=== PATIENT | female | born 1995 | race Caucasian/White ===

== ENCOUNTER 2021-08-14 17:52 | Observation (INO) | payer OTHER, SELFPAY ==
--- NOTE | 2021-08-14 17:52 | OBADM ---
This patient, Wolf Cerda, admitted to the OB room OB Post 111 for observation. pt states she has suprapubic cramping and right side back pain. has some mousy vaginal discharge. denies feeling of leaking fluid. Patient/family oriented to hospital policies and general routines including ID bracelet, bed and alarms, visiting hours, pain management, procedures, bathroom and other care routines, personal items, smoking policy, room service/diet, and visiting hours. Patient/Family are encouraged to report perceived risks to care and to ask questions if they do not understand what they are told or what they should do.
[2021-08-14 18:26] VITALS: TEMP 36.9
[2021-08-14 18:29] VITALS: BP 109/60; PULSE 71
[2021-08-14 18:30] VITALS: BMI 28.6
[2021-08-14 18:42] LABS: Add Urine Microscopic? NO; Appearance Urine Clear (Clear); Bilirubin Urine Negative (Negative); Blood Urine Negative (Negative); Color Urine Straw (Yellow); Glucose Urine UA Negative (Negative); Ketones Urine Negative (Negative); Leukocyte Esterase Ur Negative LEU/UL (NEGATIVE); Nitrate Urine Negative (Negative); Protein Urine Negative (Negative); Specific Grav Ur 1.011 (1.001-1.035); Urobilinogen Urine Negative mg/dL (<2.0)
[2021-08-14] MEDS: ACETAMINOPHEN 500 MG TABLET 1000 MG PO (19:30)
--- NOTE | 2021-08-21 16:36 | PM.OBTRLD ---
OB - Triage/Final Diagnosis Visit Information Comments/Additional reasons for admission: I have assessed the risk for this patient, Wolf Cerda, and determined that she would benefit from observation care. Evaluation Laboratory results: Laboratory Tests 08/14/21 18:33 Urine Color Straw Urine Appearance Clear Urine pH 7.0 Ur Specific [place] 1.011 Urine Protein Negative Urine Glucose (UA) Negative Urine Ketones Negative Ur Blood (Man) Negative Urine Nitrate Negative Urine Bilirubin Negative Urine Urobilinogen Negative Ur Leukocyte Esterase Negative Final Diagnosis (1) Back pain affecting : Code(s): O99.891 - Other specified diseases and conditions complicating ; M54.9 - Dorsalgia, unspecified Status: Acute (2) Abdominal pain affecting : Code(s): O26.899 - Other specified related conditions, unspecified trimester; R10.9 - Unspecified abdominal pain Status: Acute
== END 2021-08-14 19:45 | disposition home or self-care (01) ==
PROVIDERS: Admitting Provider Obstetrics & Gynecology; PCP Obstetrics & Gynecology; Visit Provider Obstetrics & Gynecology
DX: O99.893 Other specified diseases and conditions complicating puerperium (principal); M54.9 Dorsalgia, unspecified; R10.9 Unspecified abdominal pain; Z3A.29 29 weeks gestation of pregnancy
CPT/HCPCS: 81003; 87086; 87088; A9270; G0378; G0379

== ENCOUNTER 2021-10-15 18:14 | Observation (INO) | payer OTHER, SELFPAY ==
--- NOTE | 2021-10-15 18:14 | OBADM ---
This patient, Wolf Cerda, admitted to the OB room OB Post 116 for observation. Patient/family oriented to hospital policies and general routines including ID bracelet, bed and alarms, visiting hours, pain management, procedures, bathroom and other care routines, personal items, smoking policy, room service/diet, and visiting hours. Patient/Family are encouraged to report perceived risks to care and to ask questions if they do not understand what they are told or what they should do.
[2021-10-15 18:48] VITALS: BP 97/64; PULSE 84
[2021-10-15 18:50] VITALS: TEMP 36.5; BMI 30.9
[2021-10-15] MEDS: ACETAMINOPHEN 500 MG TABLET 1000 MG PO (19:13)
[2021-10-15 19:40] LABS: Add Urine Microscopic? NO; Appearance Urine Clear (Clear); Bilirubin Urine Negative (Negative); Blood Urine Negative (Negative); Color Urine Yellow (Yellow); Glucose Urine UA Negative (Negative); Ketones Urine Negative (Negative); Leukocyte Esterase Ur Negative LEU/UL (NEGATIVE); Nitrate Urine Negative (Negative); Protein Urine Negative (Negative); Urobilinogen Urine Negative mg/dL (<2.0)
[2021-10-15] MEDS: CYCLOBENZAPRINE HCL 10 MG TABLET PO (20:30)
--- NOTE | 2021-10-17 07:21 | P.PNOB_ITS ---
OB - Triage/Final Diagnosis Visit Information Date of evaluation: 10/15/21 Reason for evaluation: threatened labor Comments/Additional reasons for admission: I have assessed the risk for this patient, Wolf Knapp Cerda, and determined that she would benefit from obs ervation care. Evaluation Laboratory results: Laboratory Tests 10/15/21 19:04 Urine Color Yellow Urine Appearance Clear Urine pH 6.0 Ur Specific [place] 1.010 Urine Protein Negative Urine Glucose (UA) Negative Urine Ketones Negative Ur Blood (Man) Negative Urine Nitrate Negative Urine Bilirubin Negative Urine Urobilinogen Negative Ur Leukocyte Esterase Negative
== END 2021-10-15 21:30 | disposition home or self-care (01) ==
PROVIDERS: Advanced Practice Midwife; Admitting Provider Obstetrics & Gynecology; Visit Provider Obstetrics & Gynecology
DX: O47.1 False labor at or after 37 completed weeks of gestation (principal); Z3A.38 38 weeks gestation of pregnancy
CPT/HCPCS: 81003; 87086; 87088; A9270; G0378; G0379

== ENCOUNTER 2021-10-27 09:42 | Inpatient (IN) | payer OTHER, SELFPAY ==
[2021-10-27] VITALS (66 sets, daily range): BP systolic 63–151; BP diastolic 43–124; PULSE 61–183; RESP 18; TEMP 36.2–37.2; O2SAT 94–100; BMI 31.1
--- NOTE | 2021-10-27 09:42 | LDADM ---
This patient, Wolf Cerda, was admitted to Labor/Delivery/Recovery 106 on 10/27/21 at 09:42. Plans for labor, pain management and were discussed with patient. Patient/family oriented to hospital policies and general routines including ID bracelet, bed and alarms, visiting hours, pain management, procedures, bathroom and other care routines, personal items, smoking policy, room service/diet and guest tray routines, infant security routines, and visiting hours. Patient/Family are encouraged to report perceived risks to care and to ask questions if they do not understand what they are told or what they should do. See OBIX for further documentation.
--- OUTSIDE RECORDS SUMMARY | 2021-10-27 09:58 | XMS_ITS | Encounter Summary ---
:1995 Author Reason for Visit OB visit OB [id number] EDC 10/27/2021 LMP 01/20/2021 Assessment and Plan Assessment Note Patient is _39__weeks . Dis cussed plan. 1. Routine care Discussion Note: None recorded.Patient educational handouts: No information available. Plan of Care Reminders Provider Appointments Induction Danica Kolb, 10/29/2021 CNM 5:00PM Lab None ? ? recorded. Referral None ? ? recorded. Procedures None ? ? recorded. Surgeries None ? ? recorded. Imaging None ? ? recorded. Medications Name Start Date ? ? Diclegis ? fluticasone propionate 50 mcg/actuation nasal spray,barillas spension ? ondansetron HCl 4 mg tablet ? Take 1 tablet every 4-6 hours by oral route as needed . pantoprazole 40 mg tablet,delayed release ? TAKE 1 TABLET BY MOUTH EVERY DAY sertraline 100 mg tablet ? Take 1 tablet every day by oral route. Vitamin B6 ? Medications Administered None recorded. Vitals Height Weight BMI Blood Pressure 5 ft 5 in 186 lbs 31 kg/m2 103/68 mm[Hg] Results Lab Results None recorded. Allergies Code
--- OUTSIDE RECORDS SUMMARY | 2021-10-27 09:58 | XMS_ITS | Encounter Summary ---
:1995 Author Reason for Visit OB visit Assessment and Plan 1. Routine care 2. Anxiety in Discussion Note: None recorded.Patient educational handouts: No [...] BMI Blood Pressure 5 ft 5 in 177 lbs 29.5 kg/m2 100/70 mm[Hg] Results Lab Results None recorded. Allergies Code Code System Name Reaction Severity Onset NKDA ?
--- OUTSIDE RECORDS SUMMARY | 2021-10-27 09:58 | XMS_ITS | Encounter Summary ---
:1995 Author Reason for Visit None recorded. Assessment and Plan 1. Pre-existing maternal disease complicating ? US, obstetric, follow-up Discussion Note: None recorded.Patient educational handouts: No information available. Plan of Care Reminders Provider Appointments Induction Danica Kolb, 10/29/2021 CNM 5:00PM Lab None ? ? recorded. Referral None ? ? recorded. Procedures None ? ? recorded. Surgeries None ? ? recorded. Imaging [facility], Follow-up 08/13/2021 Medications Name Start Date ? ? Diclegis [...] B6 ? Medications Administered None recorded. Vitals None recorded. Results Lab Results None recorded. Allergies Code Code System Name Reaction Severity Onset NKDA ? ? ? Pro
--- OUTSIDE RECORDS SUMMARY | 2021-10-27 09:58 | XMS_ITS ---
:1995 Author Care Team Providers Name Role Phone MauroAzizase Primary Care Provider Unavailable Allergies Code Code System Name Reaction Severity Status Onset NKDA ? Medications Name Status Start Date Stop Date ? ? amoxicillin 500 mg capsule Completed ? 06/20 TAKE ONE CAPSULE BY MOUTH TWICE DAILY WITH FOOD Diclegis Active ? Not available ergocalciferol (vitamin D2) 1,250 mcg (50,000 unit) capsule Comp leted ? 03/23/2021 TAKE 1 CAPSULE BY MOUTH EVERY WEEK fluconazole 150 mg tablet Completed ? 2021 fluticasone propionate 50 mcg/actuation Active ? Not available nasal spray,suspension M-Yokasta Plus 27 mg iron-1 mg tablet Completed ? 03/23/2021 nitrofurantoin Completed ? 10/17/2021 monohydrate/macrocrystals 100 mg capsule norethindrone (contraceptive) 0.35 mg Completed ? 03/23/2021 tablet ondansetron 4 mg disintegrating tablet Completed ? 03/23/2021 ondansetron HCl 4 mg tablet Active ? Not available pantoprazole 40 mg tablet,delayed Active ? Not available release Plan B One-Step 1.5 mg tablet Completed ? sertraline 100 mg tablet Active ? Not herman ilable sertraline 50 mg tablet Completed ? 09/25/19 22 Unisom (diphenhydramine) Completed ? 022 Vitamin B6 Active ? Not available Zofran Completed ? 04/17/2021 Zofran (base) Completed ? 10/17/2021 Problems
--- OUTSIDE RECORDS SUMMARY | 2021-10-27 09:58 | XMS_ITS | Encounter Summary ---
:1995 Author Reason for Visit OB visit OB [id number] EDC 10/27/2021 LMP 01/20/2021 Assessment and Plan Assessment Note Patient is 36___weeks . Dis cussed plan. 1. Routine care [...] BMI Blood Pressure 5 ft 5 in 181 lbs 30.1 kg/m2 102/70 mm[Hg] Results Lab Results None recorded. Allergies Code
--- OUTSIDE RECORDS SUMMARY | 2021-10-27 09:58 | XMS_ITS | Encounter Summary ---
:1995 Author Reason for Visit None recorded. Assessment and Plan 1. Disease of the respiratory sy stem complicating , childbirth and/or the puerperium ? US, obstetric, follow-up Discussion Note: None recorded.Patient educational handouts: No information available. Plan of Care Reminders Provider Appointments Induction Danica Kolb, 10/29/2021 CNM 5:00PM Lab None ? ? recorded. Referral None ? ? recorded. Procedures None ? ? recorded. Surgeries None ? ? recorded. Imaging , [place] [facility], Follow-up 09/12/2021 Medications Name Start Date ? ? Diclegis [...]
--- OUTSIDE RECORDS SUMMARY | 2021-10-27 09:58 | XMS_ITS | Encounter Summary ---
:1995 Author Reason for Visit OB visit OB [id number] EDC 10/27/2021 LMP 01/20/2021 Assessment and Plan Assessment Note Patient is _38__weeks . Dis cussed plan. 1. Routine care [...] BMI Blood Pressure 5 ft 5 in 187.99 lbs 31.3 kg/m2 108/74 mm[Hg] Results Lab Results None recorded. Allergies Code
--- OUTSIDE RECORDS SUMMARY | 2021-10-27 09:58 | XMS_ITS | Encounter Summary ---
:1995 Author Reason for Visit OB visit Assessment and Plan 1. Routine care 2. Mixed anxiety and depressive disorder ? Zoloft 100 mg tablet Discussion Note: None recorded.Patient educational handouts: No [...] BMI Blood Pressure 5 ft 5 in 175 lbs 29.1 kg/m2 100/66 mm[Hg] Results Lab Results None recorded. Allergies Code Code System Name Reaction Severity Onset
--- OUTSIDE RECORDS SUMMARY | 2021-10-27 09:58 | XMS_ITS | Encounter Summary ---
:1995 Author Reason for Visit OB visit OB [id number] EDC 10/27/2021 LMP 01/20/2021 keiry israel is wanting STD testing Assessment and Plan Assessment Note Patient is _31__weeks . Dis cussed plan. 1. Routine care [...] BMI Blood Pressure 5 ft 5 in 173 lbs 28.8 kg/m2 113/73 mm[Hg] Results Lab Results None recorded. Allergies
--- OUTSIDE RECORDS SUMMARY | 2021-10-27 09:58 | XMS_ITS | Encounter Summary ---
:1995 Author Reason for Visit None recorded. Assessment and Plan 1. COVID-19 ? US, obstetric, follow-up Discussion Note: None recorded.Patient educational handouts: No information available. Plan of Care Reminders Provider Appointments Induction Danica Kolb, 10/29/2021 CNM 5:00PM Lab None ? ? recorded. Referral None ? ? recorded. Procedures None ? ? recorded. Surgeries None ? ? recorded. Imaging , [place] [facility], Follow-up 10/03/2021 Medications Name Start Date ? ? Diclegis [...] Reaction Severity Onset NKDA ? ? ? Problems Name St
--- OUTSIDE RECORDS SUMMARY | 2021-10-27 09:58 | XMS_ITS | Encounter Summary ---
:1995 Author Reason for Visit OB visit OB [id number] EDC 10/27/2021 LMP 01/20/2021 Assessment and Plan Assessment Note Patient is 37___weeks . Dis cussed plan. Discussion Note: None recorded.Patient educational handouts: No information available. Plan of Care Reminders Provider Appointments Induction Danica E Kennedi, 10/29/2021 CNM 5:00PM Lab None ? ? [...] BMI Blood Pressure 5 ft 5 in 187 lbs 31.1 kg/m2 104/70 mm[Hg] Results Lab Results None recorded. Allergies Code Code System Name Reaction Severity Onset
--- OUTSIDE RECORDS SUMMARY | 2021-10-27 09:58 | XMS_ITS | Encounter Summary ---
:1995 Author Reason for Visit OB visit Assessment and Plan 1. Routine care 2. Sterilization requested Discussion Note: None recorded.Patient educational handouts: No [...] BMI Blood Pressure 5 ft 5 in 169 lbs 28.1 kg/m2 107/73 mm[Hg] Results Lab Results None recorded. Allergies Code Code System Name Reaction Severity Onset NKDA ?
[2021-10-27] MEDS: LACTATED RINGERS 1,000 ML 125 ML IV CONT ×3 (10:26→11:44)
[2021-10-27 10:28] LABS: Basophils Percent Auto 0.4 % (0.2-1.2); Eosinophils Absolute Auto 0.1 K/mm3 (0-0.3); Hematocrit 36.6 % (37.0-47.0); Hemoglobin 11.7 g/dL (12.0-15.0); Immature Granulocyte Absolute 0.03 K/mm3 (0.00-0.031); Immature Granulocyte Percent A 0.3 % (0-0.5); Lymphocytes Absolute Auto 1.65 K/mm3 (0.9-3.2); Lymphocytes Percent Auto 18.5 % (18.3-44.2); Mean Corpuscular Hemoglobin 29.9 pg (26-34); Mean Corpuscular Volume 93.6 fl (80-100); Mean Platelet Volume 12.4 fl (7.4-10.4); Monocytes Absolute Auto 0.5 K/mm3 (0.1-0.6); Monocytes Percent Auto 6.1 % (2.6-8.5); Neutrophils Absolute Auto 6.6 K/mm3 (1.3-6.7); Neutrophils Percent Auto 73.7 % (45.5-73.1); Platelet Count Result 162 k/mm3 (150-375); Red Blood Count 3.91 M/mm3 (4.2-5.4); Red Cell Distribution Width 13.1 % (11.5-14.5); White Blood Count 8.9 K/mm3 (4.5-10.0)
[2021-10-27] MEDS: FAMOTIDINE 20 MG/2 ML VIAL IV PUSH (11:26)
--- NOTE | 2021-10-27 15:32 | PM.OBPRVD ---
OB - Delivery Note Procedure Delivery date: 10/27/21 Procedure: vaginal delivery Induction method: None Delivery monitor: External FHT and External Uterine Route of delivery: Laceration Description: None Specimen: No Quantitative Blood Loss (ml): 82 Anesthesia type: Epidural Disposition: Floor Baby Date of : 10/27/21 Time of : 15:14 Weeks of gestation at delivery: 39 Infant gender: Male Weight (pounds): 7 Weight (ounces): 13 presentation: vertex position: Left Occiput Anterior Placenta delivery description: Spontaneous Cord Vessel Description: 3 Vessels, Clamped/Cut and Delayed Cord Clamping score one minute: 8 score five minutes: 9 Narrative: mother and baby in stable condition
[2021-10-27] MEDS: OXYTOCIN 30 UNITS/NS 500 ML 30 UNITS/500 ML BAG 125 UNITS IV CONT (15:45)
[2021-10-27] MEDS: IBUPROFEN 600 MG TABLET PO (15:59)
[2021-10-27] MEDS: BENZOCAINE 20% AER SPR (*SP) 56 GM CAN 1 SPRAY TOPICAL (16:00)
[2021-10-27] MEDS: WITCH HAZEL 40 PADS 1 PAD TOPICAL (16:00)
--- NOTE | 2021-10-27 18:55 | OBPPTRN ---
[id number] Patient transferred to post room #285 via W/C. Support person present. Oriented to unit, room, information board, rooming in, admission packet and security measures. Patient verbalizes understanding.
[2021-10-28 00:25] VITALS: BP 89/55; PULSE 83; RESP 18; TEMP 36.4; O2SAT 98
[2021-10-28] MEDS: IBUPROFEN 600 MG TABLET PO ×4 (00:28→23:32)
[2021-10-28 04:10] VITALS: BP 94/59; PULSE 68; RESP 18; TEMP 36.6; O2SAT 99
[2021-10-28 04:23] LABS: Hematocrit 32.6 % (37.0-47.0); Hemoglobin 10.5 g/dL (12.0-15.0)
[2021-10-28] MEDS: ACETAMINOPHEN 325 MG TABLET 650 MG PO ×3 (04:23→19:15)
--- NOTE | 2021-10-28 06:49 | WPDANLDPN2 ---
Anes-Prog Note L&D Date/Time: 10/28/21 06:49 Comfortable throughout: labor and delivery Neuraxial method: epidural Neuro status: Neuro function grossly intact. Cardiovascular status: normal Respiratory status: normal Airway patency: baseline Mental status: baseline Post-Op hydration status: normal Vital Signs: Last Vital Signs Temp 36.6 C 10/28/21 04:10 Pulse 68 10/28/21 04:10 Resp 18 10/28/21 04:10 BP 94/59 L 10/28/21 04:10 Pulse Ox 99 10/28/21 04:10 Pain score (VAS): 2 I/O: Intake & Output 10/27/21 10/27/21 10/28/21 15:59 23:59 07:59 Intake Total 1999 240 Output Total 255 Balance 1999 Post-procedural complaints: none Patient feedback: Patient satisfied with anesthetic care.
[2021-10-28] MEDS: SERTRALINE HCL 50 MG TABLET 100 MG PO (08:19)
[2021-10-28] MEDS: MULTIVIT/MIN/PREN/FOL AC/IRON TABLET 1 TAB PO (08:20)
[2021-10-28] MEDS: DOCUSATE SODIUM 100 MG CAPSULE PO (08:20)
[2021-10-28 08:34] VITALS: BP 98/61; PULSE 74; RESP 12; TEMP 36.3; O2SAT 99
--- NOTE | 2021-10-28 09:59 | P.PNOB_ITS ---
OB - PN: Subj Subjective Date/time seen: 10/28/21 09:59 Patient comments: no complaints, pain well controlled, incisional pain, tolerating diet and flatus present OB - PN: Obj Data Labs CBC & Chem 7: 10/28/21 04:10 Labs: Laboratory Results - last 24 hr 10/27/21 10/27/21 10/28/21 10:15 11:01 04:10 WBC 8.9 RBC 3.91 L Hgb 11.7 L 10.5 L Hct 36.6 L 32.6 L MCV 93.6 MCH 29.9 MCHC 32.0 RDW 13.1 Plt Count 162 MPV 12.4 H Immature Gran % (Auto) 0.3 Neut % (Auto) 73.7 H Lymph % (Auto) 18.5 Bennett % (Auto) 6.1 Eos % (Auto) 1.0 Baso % (Auto) 0.4 Lymph # (Auto) 1.65 Bennett # (Auto) 0.5 Eos # (Auto) 0.1 Baso # (Auto) 0.0 Abs Immat Gran (auto) 0.03 Absolute Neuts (auto) 6.6 Absolute Nucleated RBC 0.0 Nucleated RBC % 0.0 Blood Type A Positive Antibody Screen Negative OB - PN A/P Plan day: 1 Plan: routine care Comments: No problems, routine care Time Spent With Patient Time: Total time spent is greater than 50% in coordination of care (as do cumented) at patient's floor/unit and/or counseling patient: Exam Const: General: comfortable, no acute distress and alert Resp: Effort & Inspection: normal respiratory effort Auscultation: no crackles, no rales and no rhonchi Cardio: Rate: regular rate Heart sounds: no click, no murmurs and no rubs GI: Inspection: non-distended GI Palp: No Tenderness to palpation present (GI) Auscultation: normal bowel sounds Other: Incision - CDI Extrem: General: normal to inspection, no pedal edema and no calf tenderness
[2021-10-28 12:40] VITALS: BP 108/68; PULSE 83; RESP 16; TEMP 36.2; O2SAT 97
[2021-10-28 19:00] VITALS: BP 92/51; PULSE 73; RESP 16; TEMP 37.3; O2SAT 97
--- NOTE | 2021-10-29 00:43 | PC.NURSE ---
10/29/2021 at 2130 Patient viewed the discharge video Mother & Baby Care, The First Two Weeks . Patient was given the opportunity and encouraged to ask questions. Patient verbalized understanding of information shared and has been given the mother/baby guide for home reference.
--- NOTE | 2021-10-29 07:39 | PM.OBPNVD ---
OB - PN: Subj Subjective Date/time seen: 10/29/21 07:39 Patient comments: no complaints baby status: doing well OB - PN: Obj Data Labs CBC & Chem 7: 10/28/21 04:10 OB - PN A/P Plan day: 2 Plan: routine care and discharge home Time Spent With Patient Time: Total time spent is greater than 50% in coordination of care (as documented) at patient's floor/unit and/or counseling patient: Review of Systems Review of Systems: All systems reviewed & are unremarkable except as noted in HPI and below Exam Const: General: cooperative, healthy appearing and comfortable
--- NOTE | 2021-10-29 07:40 | PM.OBDSVD ---
DS: Admitting Diagnosis Discharge Date 10/29/21 Admitting Diagnosis labor OB - DS: Summary OB Procedures : None OB Procedures Intrapartum: Spontaneous Vag Delivery OB Procedures: : None Time Spent with Patient Time attestation: Total time spent providing and/or coordinating discharge services: Discharge Plan Discharge Attending physician on discharge: Chai Oneill Discharging Clinician: Danica Kolb Patient Disposition: Home, Self-Care Activity: pelvic rest Diet: regular Patient Instructions: Antibiotic Form Stand Alone Forms: General Discharge Information Follow-up/Referrals: Danica Kolb CNM [Certified Nurse Print Traffic Manager] - 4 Weeks Discharge Medications: Continued sertraline 100 mg Tablet 100 mg PO DAILY RF: 0 Discontinued pantoprazole [Protonix] 40 mg Tablet,Delayed Release (Dr/Ec) 40 mg PO HS RF: 0 Date of admission: 10/27/21 09:42 Primary Care Provider: UNKNOWN,DOCTOR Admitting Provider: Aziza Wade Attending physician on admission: Aziza Wade Condition: Stable
[2021-10-29 07:49] LABS: Rapid Plasma Reagin Non-Reactive (NonReactive)
[2021-10-29] MEDS: MULTIVIT/MIN/PREN/FOL AC/IRON TABLET 1 TAB PO (08:16)
[2021-10-29] MEDS: SERTRALINE HCL 50 MG TABLET 100 MG PO (08:16)
[2021-10-29] MEDS: IBUPROFEN 600 MG TABLET PO (08:16)
[2021-10-29 08:17] VITALS: BP 106/66; PULSE 70; RESP 18; TEMP 36.8; O2SAT 100
--- NOTE | 2021-10-29 08:24 | PC.NURSE ---
0740 - Introductions were made, then consulted with patient to assess needs related to . Mother led the conversation with her experience feeding her infant so far. Mother works well with her and is confident. She breastfed her last child for a year. Encouraged understanding of the benefits of skin to skin (unwrapping and placing vertically on her chest), responsive feeding and how to watch for early feeding signs, frequency of feeding on demand about every 8-12 times in 24 hours (every 2-3 hours), milk production, duration of feeding, signs of adequate intake/output and how to record on the feeding sheet. Mother states she breastfed her infant at 0540 with tenderness at the start, then it subsided. Denies nipple pain or misshape. Mother voiced understanding of calling RN for a latch assessment for the next feeding. Reported to the primary RN.
--- NOTE | 2021-10-29 14:20 | PC.NURSE ---
Follow up appointment at the [facility] cancelled. Mother knows that she needs to call the office to make a appointment. already has a roster clerk appointment with Dr. Valentine tomorrow 10/30 at 1000.
--- NOTE | 2021-10-29 15:24 | PCCCNOTE ---
Care Coordination met with pt. this morning to discuss discharge planning. Pt.'s current D/C plan is to return home with her 5 year son and baby. Pt. is a single parent with limited support. Her parents have come into town to assist with the transition home. Pt. has been given a car seat and other items to assist with baby's transition home. Pt. states she will begin process to apply for WIC, she has no other D/C needs at this time.
== END 2021-10-29 14:20 | disposition home or self-care (01) | DRG 560 ==
LOC: ANHOB2 10-29 09:24 → ANHLDR 10-30 13:39 → ANHOB2 10-30 13:39
PROVIDERS: Advanced Practice Midwife; Admitting Provider Obstetrics & Gynecology; Visit Provider Obstetrics & Gynecology
DX: O80 Encounter for full-term uncomplicated delivery (principal); Z37.0 Single live birth; Z3A.40 40 weeks gestation of pregnancy
CPT/HCPCS: 36415; 85014; 85018; 85025; 86592; 86850; 86900; 86901; A9270; J2590; J2795; J7120

== ENCOUNTER 2022-08-14 00:09 | Day surgery (SDC) | payer OTHER, SELFPAY ==
[2022-08-01 15:33] VITALS: BMI 29.9
--- NOTE | 2022-08-01 15:34 | SUR.PREOP ---
Report to the Outpatient Waiting Room, entrance under the green pavilion located off [facility], at time _0600 on date _08/14/22 . Planned Procedure Time: _0730 . Time changes happen often and if your time is changed the preop area will call you the afternoon before. - You and your visitor will be asked to self-screen and do not enter if you have any COVID symptoms. - Only one visitor is requested with a max of two and NO children visitors are allowed at this time. - The patient visitor may be requested to leave or wait in car when not with patient due to distancing restrictions. - A mask is optional within the hospital. Patients may have clear liquids (water, carbonated beverages, clear teas, apple juice) until 3 hours prior to surgery with a maximum of 20 ounces. - No food from midnight until time of surgery - Infants may have breast milk until 4 hours before surgery, infant formula 6 hours prior to surgery. - Children will be allowed to drink immediately following surgery. If applicable, please bring a bottle or sippy cup to assist with drinking. Juice, water, soda, and popsicles are readily available. For infants on formula, please bring formula the day of surgery. Pacifiers are allowed. Take the following medications with a SIP of water the morning of surgery: _lorazapam Medications to discontinue per physician n/a Date to take last dose___n/a Please no make-up, nail greenlandic, hairspray, perfume, deodorant, or body powder the day of surgery. No jewelry (including any body piercings) or valuables the day of surgery, leave them at home. Please take a shower or bath the night before, or the morning of, surgery with an antibacterial soap. Wear comfortable, loose fitting clothing. Children are encouraged to wear pajamas. - Jewelry must be removed prior to entering the operating room. Rings and piercings that are not removed may be cut off. - The hospital will not accept responsibility for valuables. - Please leave all valuables, including medications, at home the day of surgery. If you are going home after surgery, a licensed experienced truck driver must drive you home. - NO public transportation without another adult if you receive anesthesia. - We recommend that an adult stay with you for 24 hours following discharge. - We also recommend that you do not drive, make important decision, drink alcoholic beverages, or take any drugs that were not prescribed by your health care provider for at least 24 hours after your discharge time. For Pediatric surgeries, we recommend two adults accompany the child home. Follow any additional instructions given to you from your surgeon. If you or anyone in your household have experienced Covid symptoms in the past week, please notify your surgeon or the nurse liaison at the phone number below for possible testing. Telephone instructions given to nestor lambert and asked if any additional questions and then verbalized understanding. Patient advised to call surgeon office or pre surgery nurse liaison [phone] if any additional questions.
[2022-08-14] VITALS (10 sets, daily range): BP systolic 81–112; BP diastolic 52–70; PULSE 68–94; RESP 16–20; TEMP 36.6–37.4; O2SAT 97–100
[2022-08-14] MEDS: LACTATED RINGERS 1,000 ML 30 ML IV CONT ×2 (06:37→08:49)
[2022-08-14] MEDS: KETOROLAC 15 MG/ML VIAL (*BKC) IV PUSH (06:39)
[2022-08-14] MEDS: ACETAMINOPHEN 500 MG TABLET 1000 MG PO (06:39)
--- NOTE | 2022-08-14 06:58 | P.PNAN_ITS ---
Anes - Initial Pre Proc Eval Procedure: Operation Date: 08/14/22 07:30 Proposed Procedures p Laparoscopic Bilateral Salpingectomy - Chai Oneill MD Date/Time: 08/14/22 06:58 Surgeon: Chai Oneill MD Pre Op Diagnosis: sterilization Patient Data Age: 26 Gender: F Height: 1.65 m Weight: 81.5 kg Last Vital Signs Temp 37.4 C 08/14/22 06:47 Pulse 89 08/14/22 06:47 Resp 16 08/14/22 06:47 BP 87/52 L 08/14/22 06:47 Pulse Ox 98 08/14/22 06:47 O2 Del Method Room Air 08/14/22 06:47 Allergies Allergy/AdvReac Type Severity Reaction Status Date / Time No Known Allergies Allergy Verified 08/14/22 06:45 Home Medications Medication Instructions Recorded Confirmed Type sertraline 100 mg tablet 100 mg PO DAILY 10/15/21 08/14/22 History lorazepam 0.5 mg tablet 0.5 mg PO PRN 08/01/22 08/14/22 History hydrocodone 5 mg-acetaminophen 325 1 tablet PO Q4H PRN pain #10 tabs 08/14/22 Rx mg tablet Patient hx anesthesia problems: none Family hx anesthesia problems: none Results Review: All pre-operative results and documents have been reviewed as part of the pre- operative evaluation. [facility] Past Medical History Medical History (Updated 08/14/22 @ 08:29 by Chai Oneill MD) Anxiety Depression Family History Family History (Updated 10/13/21 @ 14:43 by Samuel Morales RN) Other No pertinent family history Social History Social History Smoking status: Never smoker Substance use: never Living arrangements: with family Spiritual care concerns: No Anes - Eval Final PreProcedure Day of Procedure 08/14/22 06:58 Patient weight: overweight Heart: regular rate and rhythm Lungs: clear to auscultation Airway: Mallampati scale class II Neurological: alert and oriented Last oral intake: >/= 8 hours ASA classification: II Emergent: no Anesthetic plan: proceed Anesthesia type and monitoring: general ETT and standard monitoring Results Review: All pre-operative results and documents have been reviewed as part of the pre- operative evaluation. Informed Consent: The patient's anesthetic plan and its attendant risks and benefits were discussed with the patient/family/POA. Questions were solicited and answers provided to the satisfaction of the patient/family/POA.
--- NOTE | 2022-08-14 07:19 | PM.IMHP ---
H&P: HPI History of Present Illness Date/Time: 08/14/22 07:19 Chief Complaint: unwanted fertility Narrative: this patient is a 26-year-old female who desires female sterilization. We agreed to perform laparoscopic bilateral tubal ligation. She understands the procedure well. She understands the risk. She understands that injuries may occur that result in hospitalization, more surgery, severe illness. She understands risk of hemorrhage and infection. she denies any nausea, vomiting, fever, chills. She denies any chest pain or shortness of breath. Review of Systems Review of Systems: All systems reviewed & are unremarkable except as noted in HPI and below Constitutional: Constitutional: Denies chills, Denies fatigue, Denies fever(s) and Denies weakness Eyes: Eyes: Denies blurry vision, Denies change in vision, Denies loss of peripheral vision, Denies loss of vision, Denies other visual disturbances and Denies eye pain ENT: Denies vertigo, Denies dizziness, Denies hearing loss, Denies mouth pain, Denies nasal obstruction, Denies neck mass and Denies neck pain Cardiovascular: Cardiovascular: Denies chest pain, Denies diaphoresis, Denies syncope, Denies leg edema and Denies dyspnea Respiratory: Respiratory: Denies chest congestion, Denies cough, Denies hemoptysis, Denies dyspnea and Denies wheezing Gastrointestinal: Gastrointestinal: Denies abdominal pain, Denies constipation, Denies diarrhea, Denies nausea and Denies vomiting Genitourinary: Genitourinary: Denies hematuria, Denies change in libido, Denies nocturia, Denies genital lesions, Denies flank pain and Denies urinary urgency Musculoskeletal: Musculoskeletal: Denies abnormal gait, Denies back pain, Denies myalgias, Denies arthralgias, Denies joint swelling, Denies muscle weakness and Denies neck pain Integumentary/Breasts: Skin/Breast: Denies swelling, Denies breast pain, Denies breast mass, Denies dry skin, Denies nipple discharge, Denies unusual bruising and Denies jaundice Neurologic: Denies Neuro-related abnormal movements, Denies Abnormal speech present, Denies abnormal gait, Denies behavioral changes, Denies confusion, Denies vertigo, Denies dizziness, Denies syncope, Denies loss of vision, Denies memory loss, Denies convulsions and Denies weakness Psychiatric: Psychiatric: Denies abnormal sleep pattern, Denies behavioral changes, Denies change in libido, Denies confusion, Denies depression, Denies anhedonia and Denies memory loss Endocrine: Endocrine: Reports no additional endocrine complaints, Denies change in libido and Denies fatigue Hematologic/Lymphatic: Hematologic/Lymphatic: Reports no additional hematologic/lymphatic complaints Allergic/Immunologic: Allergic/Immunologic: Reports no additional allergic/immunologic complaints and Denies wheezing PMFSH Past Medical History Medical History (Updated 08/14/22 @ 07:20 by Chai Oneill MD) Anxiety Depression Family History Family History (Updated 10/13/21 @ 14:43 by Samuel Morales RN) Other No pertinent family history Social History Social History Smoking status: Never smoker Substance use: never Living arrangements: with family Spiritual care concerns: No Meds Home Medications and Allergies Home Medications Medication Instructions Recorded Confirmed Type sertraline 100 mg tablet 100 mg PO DAILY 10/15/21 08/14/22 History lorazepam 0.5 mg tablet 0.5 mg PO PRN 08/01/22 08/14/22 History Allergies Allergy/AdvReac Type Severity Reaction Status Date / Time No Known Allergies Allergy Verified 08/14/22 06:45 Vital Signs Vital Signs - 24 hr 08/14/22 06:47 Temperature 99.4 F Pulse Rate 89 Respiratory Rate 16 Blood Pressure 87/52 L Pulse Oximetry 98 Oxygen Delivery Room Air Exam Const: General: cooperative, healthy appearing, comfortable and no acute distress; No confusion Orientation/consciousness: oriented to person, oriented to place, oriented to time and N
--- NOTE | 2022-08-14 07:22 | WPDHPUPDATE1 ---
History and Physical Update Update Date/Time: 08/14/22 07:22 This patient is to receive laparoscopic bilateral salpingectomy. The H and P indicates to ligation, but this is a bilateral salpingectomy. History and Physical has been reviewed, including an updated exam of the patient. There are NO changes in the patient's condition. Risks, benefits, and alternatives have been discussed and questions answered. Patient agrees to proceed with procedure.
[2022-08-14] MEDS: SCOPOLAMINE 1.5 MG PATCH TRANSDERM (07:27)
[2022-08-14] MEDS: fentaNYL CITRATE INJ (*CRX) 100 MCG/2 ML VIAL 25 MCG IV PUSH ×4 (08:27→08:42)
--- NOTE | 2022-08-14 08:28 | W.PM.PROC2 ---
Procedure Note - Detailed Date of Procedure 08/14/22 Pre-op Diagnosis sterilization Post-op Diagnosis Same Procedure Performed Laparoscopic bilateral salpingectomy Surgeon Chai Oneill MD Anesthesia General Indications Unwanted fertility Findings Normal pelvic anatomy Description of Procedure The patient was taken the operating room. She was prepped and draped in the dorsal lithotomy position after induction of general anesthesia. A 5 mm skin incision was made in the left upper quadrant of the abdominal skin. A 5 mm trocar was inserted the intra-abdominal cavity under direct visualization of the scope. Pneumoperitoneum was achieved. A 5 mm trocar was inserted in the left lower quadrant identical fashion. A 5 mm infraumbilical trocar was inserted in identical fashion as well. The bilateral fallopian tubes were removed. This was done by using a LigaSure cautery. The mesosalpinx adjacent to the tube was cauterized transected with LigaSure. This was initiated in the area the ovary and in a stepwise fashion moved medially to the area of the cornu of the uterus. Once there the fallopian tube was cauterized and transected. This was done in identical fashion on each side. The fallopian tubes were taken out through the left lower quadrant trocar site. The pneumoperitoneum was reduced. The trocars removed. The skin was closed with subcuticular 4 Monocryl and covered with Dermabond. She was taken to cover stable condition. Sponge lap and needle counts were correct x2. Estimated Blood Loss -10.0 Drains No Packing No Pathology Yes Complications No immediate complications Condition Stable Disposition PACU
[2022-08-14] MEDS: oxyCODONE HCL (*CRX) 5 MG TAB IR PO (09:51)
== END 2022-08-14 11:04 | disposition home or self-care (01) ==
PROVIDERS: PCP Family Medicine; Visit Provider Obstetrics & Gynecology
PROC: (CPT 49320; principal; 2022-08-14 07:30)
DX: Z30.2 Encounter for sterilization (principal); N83.8 Other noninflammatory disorders of ovary, fallopian tube and broad ligament; F41.9 Anxiety disorder, unspecified; F32.A Depression, unspecified
CPT/HCPCS: 58661; 88302; A9270; J1100; J1885; J2250; J2405; J2704; J2710; J3010; J7030; J7120; Q9968